=== PATIENT | female | born 1960 | race Caucasian/White ===

== ENCOUNTER 2016-06-17 12:52 | Emergency (ER) | payer OTHER ==
[2016-06-17 13:38] VITALS: BP 97/62; TEMP 98.4
[2016-06-17] MEDS ORDERED: ALBUTEROL 3 ML DEYVIAL IH ONE (13:55)
--- NOTE | 2016-06-17 14:00 | UCPHY ---
H & P Time Seen by Provider: 06/17/16 13:40 Patient Type: New HPI/ROS: CHIEF COMPLAINT: Cough, fever HISTORY OF PRESENT ILLNESS: 56-year-old female presents to urgent care by private vehicle complaining of ongoing cough for the last 1 week. Patient states that her had similar symptoms about 2 weeks ago and his symptoms have now resolved. She has had subjective fevers over the last few evenings. She denies pain in her chest. She has had bronchitis in the past and states this feels similar. She did receive a flu shot this year. She denies headache. Denies back pain. Denies abdominal pain. No recent travel. REVIEW OF SYSTEMS: Constitutional: Subjective fevers, chills Eyes: No double or blurry vision. ENT: Nasal congestion, rhinorrhea. No sore throat. Respiratory: Cough. No shortness of breath. Cardiac: No chest pain. Gastrointestinal: No abdominal pain, vomiting or diarrhea. Genitourinary: No dysuria. Musculoskeletal: No neck or back pain. Skin: No rashes. Neurological: No headache. Past Medical/Surgical History: Bronchitis, orthopedic surgeries Social History: Smoking Status: Never smoked Physical Exam: General Appearance: Alert, no distress. 36.9, 96% on room air. No respiratory distress. Eyes: Pupils equal and round. Extraocular motions are all intact. ENT: Mouth: Mucous membranes moist. Cold sore noted to the left upper lip. Respiratory: Occasional expiratory wheeze especially in the bases. No rales. No retractions or difficulty breathing. Cardiovascular: Regular rate and rhythm. Gastrointestinal: Abdomen is soft and nontender, no masses, no rebound or guarding, bowel sounds normal. Neurological: Alert and oriented x 3, cranial nerves II through XII grossly intact Skin: Warm and dry, no rashes. Musculoskeletal: Nontender to palpate along the cervical, thoracic or lumbar spine. Neck is supple. Extremities: Full range of motion and no peripheral edema. Psychiatric: Patient is oriented X 3, there is no agitation. Constitutional: Initial Vital Signs Temperature (C) 36.9 C 06/17/16 13:33 Heart Rate 96 06/17/16 13:33 Respiratory Rate 14 06/17/16 13:33 Blood Pressure 97/62 L 06/17/16 13:33 O2 Sat (%) 96 06/17/16 13:33 O2 Delivery Mode Room Air Allergies/Adverse Reactions: naproxen sodium [From Aleve] Allergy (Verified 06/17/16 13:33) Home Medications: Medication Instructions Recorded Albuterol [Proventil Inhaler HFA 1 - 2 puffs IH Q4PRN PRN #1 mdi 06/17/16 (*)] Azithromycin [Zithromax tab 250 mg] 250 mg PO DAILY #6 tab 06/17/16 Medical Decision Making ED Course/Re-evaluation: 56-year-old female presents to urgent care with URI symptoms. Patient has a history of bronchitis. She does have some expiratory rhonchi. She will be treated with albuterol nebulizer. I do not think chest x-rays indicated. She will be treated with Zithromax and sent home with albuterol inhaler. She feels comfortable being discharged home. Her O2 saturation on room air is 96%. I do not think this patient needs testing for influenza. She has been symptomatic for over 1 week. I do not think Tamiflu is indicated. Differential Diagnosis: Including but not limited to bronchitis, pneumonia, influenza, viral upper respiratory infection - Data Points Medications Given: Discontinued Medications Albuterol (Proventil Neb) 3 ml IH EDNOW ONE Stop: 06/17/16 13:56 Last Admin: 06/17/16 14:20 Dose: 3 ml Departure - Departure Disposition: Home, Routine, Self-Care Clinical Impression: Bronchitis Condition: Good Instructions: Acute Bronchitis (ED) Additional Instructions: Zithromax as directed for 5 days. Albuterol inhaler 2 puffs every 4 hours for 1 week and then as needed. Return if he develops shortness of breath, pain in your chest, or if you feel worse in any way. Referrals: Maryann Henson MD [Primary Care Provider] - As per Instructions Prescriptions: Albuterol [Proventil Inhaler HFA (*)] 1 - 2 puffs IH Q4PRN PRN #1 mdi PRN Reason: Short Of Breath/Dyspnea Azithromycin [Zithromax tab 250 mg] 250 mg PO DAILY #6 tab - PQRS PQRS Measurement: Not applicable
[2016-06-17 15:03] VITALS: PULSE 88; RESP 22; O2SAT 98
== END 2016-06-17 15:03 | disposition home or self-care (01) ==
LOC: CED 12:52
DX: J20.9 Acute bronchitis, unspecified (principal)
CPT/HCPCS: 99203-PO; G0463-PO

== ENCOUNTER → 2016-10-13 | Outpatient (CLI) | payer OTHER | LOC: FIMAGING 09:30 | DX: Z12.31 Encounter for screening mammogram for malignant neoplasm of breast (principal) | CPT/HCPCS: G0202 ==

== ENCOUNTER → 2017-12-17 | Outpatient (CLI) | payer BC, OTHER | LOC: FIMAGING 09:47 | PROVIDERS: ATTEND Family Medicine | DX: Z12.31 Encounter for screening mammogram for malignant neoplasm of breast (principal) ==